=== PATIENT | female | born 1975 | race Caucasian/White ===

== ENCOUNTER 2025-01-28 20:38 | Inpatient (IN) | payer BC, SELFPAY ==
[2025-01-28 15:13] VITALS: BP 142/98
[2025-01-28 15:46] LABS: Hematocrit 37.9 % (37.0-47.0); Hemoglobin 13.3 g/dL (12.0-16.0); Mean Corp Hgb Conc. 35.1 g/dL (33.0-37.0); Mean Corpuscular Volume 99.0 fL (81.0-99.0); Nucleated Red Blood Cells % 0 %; Platelet Count 164 10^3/uL (130-400); Red Cell Dist. Width 11.8 % (11.5-14.5)
[2025-01-28 16:00] LABS: Troponin I 0.020 ng/ml
[2025-01-28 16:05] LABS: ALT (SGPT) 96 U/L (0-35); AST (SGOT) 154 U/L (14-36); Albumin 4.0 g/dl (3.5-5.0); Alkaline Phosphatase 98 U/L (38-126); Blood Urea Nitrogen 7 mg/dl (7-17); Calcium 9.4 mg/dl (8.4-10.2); Carbon Dioxide 22 mmol/L (22-30); Chloride 103 mmol/L (98-107); Glucose 94 mg/dl (70-99); Potassium 4.4 mmol/L (3.5-5.1); Sodium 134 mmol/L (135-145); Total Protein 6.6 g/dl (6.3-8.2); eGFR > 60.00
[2025-01-28 17:37] VITALS: BMI 28.7
[2025-01-28 18:00] VITALS: BP 138/106
[2025-01-28 18:16] LABS: HCG, Serum Qualitative Screen Negative
[2025-01-28 18:36] LABS: APTT 25.9 Sec (23.4-35.0)
[2025-01-28] MEDS: HEPARIN 25000 UNITS/250 ML IV (18:36)
[2025-01-28] MEDS: HEPARIN 6400 UNITS IV (18:38)
[2025-01-28] MEDS: NSS 500 IV (18:42)
--- NOTE | 2025-01-28 19:40 | ED.GENMED ---
History of Present Illness
General
Chief Complaint: Swelling
Time Seen by Provider: 01/28/25 17:24
History of Present Illness
History of Present Illness:
49-year-old female complaining of a few days of left leg pain. Also noting shortness of breath and tachycardia at home. No travel history no history of clotting. No other medical history
Phy Exam
Physical Exam
Physical Exam:
GENERAL: Alert and oriented in no apparent distress
EYE: Orbits normal.
NECK: Supple, no significant adenopathy.
ENT: Pharynx without erythema
CARDIAC: Regular rate and rhythm without any obvious murmurs.
LUNGS: Clear breath sounds,normal
ABDOMEN: Soft, without focal tenderness or distention
NEUROLOGICAL: Alert and oriented , grossly non-focal
SKIN: Warm and dry, no rash or lesion, no discoloration, skin intact.
MUSCULOSKELETAL: Mild swelling and tenderness to left lower extremity and calf. Good distal pulses and color
PSYCH: Normal and appropriate interaction.
Scores
Heart Failure Risk
Heart Failure Risk Score: Not Applicable
Course
Orders/Labs/Results
Orders:
Orders
01/28/25 15:07
EKG [Electrocardiogram (*1)] Urgent
Reason for Study: Shortness of Breath
EKG- Treatment ONCE
01/28/25 15:19
Venous Doppler Lwr Ext Left [US Periph Venous LOWER Ext LT] Urgent
Comment:
Reason For Exam: L calf pain, SOB
01/28/25 15:26
Complete Blood Count/With Diff Urgent
Comprehensive Metabolic Panel Urgent
HCG, Serum Qualitative Screen Urgent
Comment: ADD ON
NT-proBNP Urgent
Troponin I Urgent
01/28/25 17:25
CT Chest PE Study Urgent
Comment:
Reason For Exam: Short of breath/DVT
IV Insert/Care/Rem.- Treatment PRN
0.9% Sodium Chloride 500 ml [Nss] 500 ml IV BOLUS
01/28/25 17:34
Add On- LAB Urgent
Tests Added?: qual bhcg
01/28/25 17:38
Heparin 6,400 units IV NOW STA
Nursing to Place Non Medication Order As Directed
Physician Order: PTT 6 hours after initial start of Heparin infusion
Above order entered?: Yes
01/28/25 17:45
Heparin 54867 Units/250 ml 25,000 units in 250 ml IV PER PROTOCOL
Weight to be used for heparin protocol in kilograms (kg):: 80.6
Protocol:: DVT/PE
PTT Goal Range to be used:: PTT 73 to 111 seconds
Order type:: Initial
INITIAL Infusion Dose (UNITS/KG/hr) & then follow protocol:: 18 units/kg/hr
Infusion Dose in UNITS/hr & then follow protocol (UNITS/hr):: 1,500
INFUSION RATE in mL/hr & then follow protocol (mL/hr):: 15
For DVT/PE algorithm, re-bolus for low PTT?: Yes
PTT less than or equal to 64 seconds:: Re-bolus 80 units/kg (max 10,000units). Increase by 300 units/hr
(+ 3mL/hr)
PTT 64.1 to 72.9 seconds:: Re-bolus 40 units/kg (max 5,000 units). Increase by 200 units/hr
(+ 2mL/hr)
PTT 73 to 111 seconds:: Target Range. No change in rate.
PTT 111.1 to 130.9 seconds:: Decrease rate by 200 units/hr (- 2 mL/hr)
PTT 131 to 199.9 seconds:: HOLD for 1 hr. Then decrease by 200 units/hr (- 2mL/hr)
PTT greater than or equal to 200 seconds:: HOLD for 2 hrs & Notify Provider. Then decrease by 300 units/hr
(- 3mL/hr)
Lab follow-up:: Each change, PTT q6h until 2 consecutive are therapeutic. Then
PTT daily.
12/12/25 18:18
PTT Urgent
Comment: Obtain baseline before beginning heparin infusion if not already collected
01/28/25 18:26
Heparin 3,200 units IV PRN PRN
Heparin 6,400 units IV PRN PRN
01/29/25 00:36
Protime/PTT Routine
Is the patient on Heparin?: Yes
Abnormal Lab Results
01/28/25
15:26
RBC 3.83 L 10^6/uL
(4.20-5.40)
MCH 34.7 H pg
(27.0-31.0)
Abs Immat Gran (auto) 0.1 H 10^3/uL
(0-0.05)
Absolute Monos (auto) 1.1 H 10^3/uL
(0.1-0.6)
Immature Gran % 0.6 H %
(0-0.5)
Lymphocytes % 20.2 L %
(20.5-51.1)
Monocytes % 11.5 H %
(1.7-9.3)
Sodium 134 L mmol/L
(135-145)
Total Bilirubin 1.4 H mg/dl
(0.2-1.3)
AST 154 H U/L
(14-36)
ALT 96 H U/L
(0-35)
01/28/25 15:26
01/28/25 15:26
Vital Signs
Initial and Last Documented VS:
Initial Vital Signs
Temp Pulse Resp BP Pulse Ox
98.3 F 96 20 142/98 98
01/28/25 15:13 01/28/25 15:13 01/28/25 15:13 01/28/25 15:13 01/28/25 15:13
Last Documented Vital Signs
Temp Pulse Resp BP Pulse Ox
98.3 F 76 25 138/106 98
12/12/25 15:13 01/28/25 19:00 01/28/25 19:00 01/28/25 18:00 01/28/25 19:00
MDM/Problems Addressed
Differential Diagnosis Includes:
Patient with a positive ultrasound for extensive lower extremity DVT. Also describing clear-cut high risk for pulmonary emboli with shortness of breath and tachycardia. No obvious explanation or history. No clotting disorders. No travel history.
No risk factors. Patient clinically appears stable and nontoxic. Started heparin presumptively based on a very high suspicion. CT scan confirms bilateral pulmonary emboli. No RV strain. Patient will be heparinized and admitted
*Radiology
Radiology exam reviewed: radiology read reviewed (Bilateral upper lobe and lower lobe pulmonary emboli. No RV strain)
*Pulse Oximetry
SaO2: 98
Nasal Cannula flow liters per minute: 99
Oxygen Mode of Delivery: Room air
Patient hypoxic: no (98)
*EKG
Interpreted by ED Provider?: Yes
Interpretation: abnormal
Comparison EKG: no comparison EKG present
Heart Rate: 81
Rate: normal
Rhythm: sinus
[place]: normal axis
Interval: normal interval
QRS Pattern: low voltage
Ischemia: non-specific ST changes
*Billet Heater Interpretation
Rate: normal
Interpretation: normal
Heart Rate: 70
*Critical Care Note
Total Time (30-74mins, 75-104mins- exclusive of procedures): 40
ED Attending Note
-
Portions of this chart may have been created with voice recognition software.� Occasional wrong word or��sound alike� substitutions may have occurred due to the inherent limitations of voice recognition software.
Discharge Plan
Departure
Patient Disposition: Admit
Date of Disposition: 01/28/25
Time of Disposition: 19:11
Presentation/result/management discussed w/ accepting MD/DO: Hospitalist
Discharge Problem:
Bilateral pulmonary emboli, Left lower extremity DVT
Prescriptions:
No Action
acetaminophen [Tylenol] 325 mg Tablet
650 mg PO Q6HPRN PRN (Reason: MILD PAIN)
Referrals:
NONE,* [Family Provider, Internal Medicine]
Interventions
Interventions:
*Risk Screen - Suicide Last Done: 01/28/25 15:13
*General Assessment Last Done: 01/28/25 15:13
*Neglect/Abuse Screening Last Done: 01/28/25 15:13
*ED COVID-19 Vaccine History Last Done: 01/28/25 15:13
*ED Influenza Vaccine History Last Done: 01/28/25 15:13
[facility] Fall Risk Assessment Tool Last Done: 01/28/25 17:41
ED- Cardiac Assessment Last Done: 01/28/25 17:40
ED- Pulmonary Assessment Last Done: 01/28/25 17:40
ED-Skin Assessment Last Done: 01/28/25 17:39
Discharge Date and Time
Print Language: YAKUT
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
[2025-01-28] MEDS: TYLENOL 650 MG PO (20:30)
[2025-01-28 22:31] VITALS: BP 132/86
--- NOTE | 2025-01-28 23:00 | TRANSFER ---
Received pt from ED via stretcher. Pt AAOx3.VSS. Heparin gtt running per protocol verified with ED RN. Due to (+) PE, pt instructed to roll from stretcher to bed with staff assistance to minimize risk. Pt oriented to room, unit and use of call bowser.
Plan of care reviewed and ongoing.
[2025-01-28] MEDS: ROXICODONE 5 MG PO (23:16)
[2025-01-28 23:19] LABS: Troponin I 0.017 ng/ml
[2025-01-29] VITALS (11 sets, daily range): BP systolic 103–131; BP diastolic 68–89; BMI 28.6
[2025-01-29 01:08] LABS: INR 1.27; PT 16.0 Sec (11.4-14.6)
[2025-01-29 01:28] LABS: APTT 152.8 Sec (23.4-35.0)
[2025-01-29] MEDS: ROXICODONE 5 MG PO ×3 (03:35→18:00)
[2025-01-29 04:52] LABS: Blood Urea Nitrogen 9 mg/dl (7-17); Calcium 8.7 mg/dl (8.4-10.2); Carbon Dioxide 23 mmol/L (22-30); Chloride 104 mmol/L (98-107); Estimated Creatinine Clearance 123 ml/min; Glucose 120 mg/dl (70-99); Potassium 3.6 mmol/L (3.5-5.1); Sodium 133 mmol/L (135-145); eGFR > 60.00
--- NOTE | 2025-01-29 05:28 | PTCARENOTE ---
Pt's oxygen saturation noted to decreased to 89% while sleeping. Pt without sign of acute respiratory distress. Oxygen applied at 1L/min for comfort. INVESTMENT REPRESENTATIVE Kristie Hi notified; oxygen therapy ordered. Pt's oxygen saturation improved. Plan of care
ongoing. Will continue to monitor.
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
--- NOTE | 2025-01-29 08:30 | PTCARENOTE ---
Patient received from rd scientist. Patient resting comfortably in bed. AAO, VSS. No events noted overnight. Complaints of pain in the left leg, warm to the touch and swollen. Heparin gtt @ 1300 units/hr, next PTT around 0830. No testing
scheduled at this time. Call bowser in reach.
[2025-01-29] MEDS: DILAUDID 0.5 MG IV ×3 (08:40→21:55)
--- NOTE | 2025-01-29 09:34 | W.PN.HOSP.TC ---
Today's Communication/Plan
-
.
Assessment / Plan
Assessment / Plan
Physical Exam
General:no acute distress
HEENT: Moist mucous membranes and PERRLA
Respiratory: Clear; mild rales heard at bases, no wheezes, limited overall
Cardiac: S1/S2 and Regular Rhythm; No Murmur
GI: Soft, Non Tender, Non Distended and Normal Bowel Sounds
Musculoskeletal: No Clubbing, No Cyanosis and Other (LLE 1-2+ edema. No RLE edema or calf tenderness.)
Neuro: AO x 3, she followed commands.
Psych: calm.
Patient is a 49y F with no significant PMH who presents to ED for evaluation of palpitations, SOB and LLE swelling.
LLE DVT/ Extensive Bilateral Pulmonary Emboli
Sao2 dropped to 90 % while asleep but no hypoxia reported.
She reports pleuritic chest pain with discolored left lower extremity which is consistent with DVT.
Continue heparin for 48-hour
Negative troponin. EKG normal sinus rhythm.
Continue pain control with Tylenol, oxycodone
Appreciate hematology and pulmonary input
# Mild elevation liver enzymes. Recheck. No abdominal pain. No nausea.
# Hyponatremia, mild. No confusion.
Code Status: Full
Total time spent to see the patient, examined the patient, reviewed data and lab result, discuss treatment plan with patient, nursing staff around 55 minutes
Anticipated Discharge: > 48 hours
Subjective/Interval History
-
Date of Service: January 29, 2025
She has pleuritic chest pain, lower left leg pain. Responding to pain medicine.
Objective Data
-
Labs:
Laboratory Results
01/29/25 01/29/25 01/29/25
00:44 03:40 09:10
PT 16.0 H
INR 1.27
APTT 152.8 H* Pending
Sodium 133 L
Potassium 3.6
Chloride 104
Carbon Dioxide 23
BUN 9
Creatinine 0.5 L
Glucose 120 H
Calcium 8.7
Vital Signs:
Vital Signs
Temp Pulse Resp BP Pulse Ox
98.4 F 72 20 117/78 97
01/29/25 07:16 01/29/25 06:00 01/29/25 06:00 01/29/25 06:00 01/29/25 06:00
I&O
01/28/25 01/29/25 01/30/25
06:59 06:59 06:59
Intake Total 480 / 480
Balance 480 / 480
[2025-01-29 09:36] LABS: APTT 96.0 Sec (23.4-35.0)
[2025-01-29] MEDS: HEPARIN 25000 UNITS/250 ML IV (11:49)
--- NOTE | 2025-01-29 12:22 | CM ---
CM reviewed chart and attempted to see patient for initial assessment, however patient was receiving care with jaye shen. Per chart, patient lives at home with and child(yaneth). Patient is listed as self-pay with no PCP. CM will follow up.
[2025-01-29 15:46] LABS: APTT 73.8 Sec (23.4-35.0)
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
[2025-01-29] MEDS: MELATONIN 5 MG PO (21:55)
[2025-01-30] VITALS (12 sets, daily range): BP systolic 98–124; BP diastolic 57–86; PULSE 75; O2SAT 98
--- NOTE | 2025-01-30 01:28 | PTCARENOTE ---
Pt received at beginning of shift resting in bed. AAOX3. Heparin gtt at 1300units/hr. PTT therapeutic x 2 next PTT in am. Pt without c/o CP. Admits to left leg pain. Medicated with Dilaudid at 2200 as ordered with good relief. Placed on 2 L NC
overnight pox 88% when asleep. Rest of assessment as documented. Call bowser remains within reach. Will continue to monitor.
[2025-01-30 03:53] LABS: Hematocrit 34.6 % (37.0-47.0); Hemoglobin 12.0 g/dL (12.0-16.0); Mean Corp Hgb Conc. 34.7 g/dL (33.0-37.0); Mean Corpuscular Volume 100.3 fL (81.0-99.0); Platelet Count 152 10^3/uL (130-400); Red Cell Dist. Width 11.9 % (11.5-14.5)
[2025-01-30 04:05] LABS: APTT 81.3 Sec (23.4-35.0)
[2025-01-30] MEDS: ROXICODONE 5 MG PO ×4 (04:05→19:44)
[2025-01-30] MEDS: DILAUDID 0.5 MG IV ×4 (08:16→23:32)
[2025-01-30] MEDS: HEPARIN 25000 UNITS/250 ML IV (08:17)
--- NOTE | 2025-01-30 10:46 | W.PN.HOSP.TC ---
Addendum entered and electronically signed by Roxann Ayers MD 01/30/25 15:19:
Addendum
Extensive pulmonary embolism, will order echocardiogram.
- Left lower extremity mild swelling, good peripheral pulses. Discussed with vascular surgery. Reviewed ultrasound result, no thrombosis seen in common femoral vein, vascular will see the patient for further recommendations, appreciate help.
End
Original Note:
Today's Communication/Plan
-
c/w IV heparin gtt
c/w pain control
Ok to ambulate
Assessment / Plan
Assessment / Plan
Physical Exam
General:no acute distress
HEENT: Moist mucous membranes and PERRLA
Respiratory: Clear; mild rales heard at bases, no wheezes, limited overall
Cardiac: S1/S2 and Regular Rhythm; No Murmur
GI: Soft, Non Tender, Non Distended and Normal Bowel Sounds
Musculoskeletal: No Clubbing, No Cyanosis and Other (LLE 1-2+ edema. No RLE edema or calf tenderness.)
Neuro: AO x 3, she followed commands.
Psych: calm.
Patient is a 49y F with no significant PMH who presents to ED for evaluation of palpitations, SOB and LLE swelling.
LLE DVT/ Extensive Bilateral Pulmonary Emboli
Sao2 dropped to 90 % while asleep but no hypoxia reported.
She reports pleuritic chest pain with discolored left lower extremity which is consistent with DVT.
Continue heparin for 48-72-hour
Negative troponin. EKG normal sinus rhythm.
Continue pain control with Tylenol, oxycodone
per oncology: Provoked posttraumatic left popliteal DVT with bilateral pulmonary embolism. At least 6 month sof AC then re-evaluate
Appreciate hematology and pulmonary input
# Mild elevation liver enzymes. Recheck. No abdominal pain. No nausea.
# Hyponatremia, mild. No confusion.
Code Status: Full
Total time spent to see the patient, examined the patient, reviewed data and lab result, discuss treatment plan with patient, nursing staff around 55 minutes
Anticipated Discharge: 24 - 48 hours
Subjective/Interval History
-
Date of Service: January 30, 2025
Still left leg pain at times
Objective Data
-
Labs:
Laboratory Results
01/30/25
03:39
WBC 6.1
Hgb 12.0
Hct 34.6 L
Plt Count 152
APTT 81.3 H
Vital Signs:
Vital Signs
Temp Pulse Resp BP Pulse Ox
98.2 F 84 19 118/86 93
01/30/25 08:13 01/30/25 10:00 01/30/25 10:00 01/30/25 08:21 01/30/25 10:00
I&O
01/29/25 01/30/25 01/31/25
06:59 06:59 06:59
Intake Total 480 / 480 1476 / 1476
Balance 480 / 480 1476 / 1476
--- NOTE | 2025-01-30 11:19 | CM ---
CM met with pt bedside
Pt resides with her spouse and 3 children ( 18, 15, 12 y/o) in a 2SH with 1 DANIE through front, full flight to 2nd floor
Pt is independent with her ADLs
Denies use of DMEs and financial insecurities
PCP- none
Rx- [facility]
Pt listed as self-pay
Pt notes she is insured through [employer] with Rx
Does not have card with her- requested card or copy to be provided
Pt currently admitted in the IMU for B/L pulmonary emboli and LLE DVT
PT eval pending
CM will follow for dc planning
Discharge Disposition- anticipate home, likely no needs
--- NOTE | 2025-01-30 16:00 | PTCARENOTE ---
Patient able to walk to and back from bathroom throughout the day. Pt is limping and not trying to put pressure on left leg due to pain. Patient worked with PT and sat out in chair. Pt does have significant pain in her LLE and has gotten pain
medication about every 2 hours, see MAR. Pt's SPO2 stable while awake but does drop to 88-89% while asleep and 2L NC applied at that time. Assessment, care and VS as charted.
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
[2025-01-30] MEDS: DILAUDID 0.25 MG IV (21:46)
--- NOTE | 2025-01-30 22:25 | PTCARENOTE ---
Assumed care of patient from anival RN. Pt aaox3. NSR on the monitor. SpO2 96% on 1L NC. Pt c/o 9/10 tight and sharp pain in her left calf. Pt not due for any pain medications at that time and SIGN [employer]ARD [employer]OR made aware. Rx received for IV Dilaudid (see
APR). Pt currently resting in bed with call bowser in reach.
[2025-01-31] VITALS (12 sets, daily range): BP systolic 94–123; BP diastolic 62–83
[2025-01-31] MEDS: ROXICODONE 5 MG PO ×4 (02:09→21:07)
[2025-01-31] MEDS: HEPARIN 25000 UNITS/250 ML IV (05:46)
[2025-01-31] MEDS: DILAUDID 0.5 MG IV ×5 (05:47→23:55)
[2025-01-31 06:24] LABS: APTT 59.2 Sec (23.4-35.0)
[2025-01-31 06:36] LABS: Blood Urea Nitrogen 5 mg/dl (7-17); Calcium 8.4 mg/dl (8.4-10.2); Carbon Dioxide 26 mmol/L (22-30); Chloride 102 mmol/L (98-107); Estimated Creatinine Clearance 123 ml/min; Glucose 102 mg/dl (70-99); Potassium 3.8 mmol/L (3.5-5.1); Sodium 132 mmol/L (135-145); eGFR > 60.00
[2025-01-31] MEDS: HEPARIN 6400 UNITS IV (07:07)
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
[2025-01-31 08:18] LABS: ALT (SGPT) 47 U/L (0-35); AST (SGOT) 51 U/L (14-36); Alkaline Phosphatase 84 U/L (38-126); Magnesium 2.0 mg/dl (1.6-2.3)
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
--- NOTE | 2025-01-31 09:11 | PTCARENOTE ---
pt aaox3. states pain in left lower leg pain med given as ordered. pt able to walk to bathroom but having pain in leg. heparin gtt running as ordered. pt on room air breath sounds clear diminished at base 95%.
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
[2025-01-31 13:14] LABS: Hematocrit 34.3 % (37.0-47.0); Hemoglobin 12.1 g/dL (12.0-16.0); Mean Corp Hgb Conc. 35.3 g/dL (33.0-37.0); Mean Corpuscular Volume 99.1 fL (81.0-99.0); Platelet Count 177 10^3/uL (130-400); Red Cell Dist. Width 12.0 % (11.5-14.5)
[2025-01-31 13:28] LABS: APTT 160.2 Sec (23.4-35.0)
--- NOTE | 2025-01-31 17:22 | CM ---
F/U: MARIAH Agapito was asked to grullon Eliquis starter pack (75 pills) then regular monthly pack (60 pills). [place]on for starter is about $400 and regular monthly is $320. MARIAH was able to use $10 copay card for the starter, unable to use 30 day copay card
for 60 pills, but [facility] stated to have patient obtain one from cardiology office and try when it is time to fill for the 60 pills. Patient/ family aware as well as hospitalist. PLAN: Anticipate Home No Needs.
[2025-01-31] MEDS: ELIQUIS 10 MG PO (19:54)
[2025-01-31] MEDS: MELATONIN 5 MG PO (21:07)
--- NOTE | 2025-01-31 23:32 | PTCARENOTE ---
assumed care of patient. pt is AAOx3, VSS. able to make needs known. heparin gtt turned off at 1999 per order. first dose of eliquis given per APR. pt with reports of left leg pain. medicated per APR. pt able to walk into bathroom x1 assist, pt
putting minimal weight on left leg d/t pain. pt is 95% RA. care ongoing.
[2025-02-01 05:21] VITALS: BP 121/69
[2025-02-01] MEDS: DILAUDID 0.5 MG IV (05:24)
[2025-02-01 05:58] LABS: Hematocrit 34.2 % (37.0-47.0); Hemoglobin 12.1 g/dL (12.0-16.0); Mean Corp Hgb Conc. 35.4 g/dL (33.0-37.0); Mean Corpuscular Volume 101.5 fL (81.0-99.0); Platelet Count 194 10^3/uL (130-400); Red Cell Dist. Width 11.9 % (11.5-14.5)
[2025-02-01 08:09] VITALS: BP 122/77
[2025-02-01] MEDS: ROXICODONE 5 MG PO (08:16)
[2025-02-01] MEDS: ELIQUIS 10 MG PO (08:16)
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
--- NOTE | 2025-02-01 08:31 | PTCARENOTE ---
pt aaox3. states 8/10 pain in left leg. pain med given. reviewed pain management goals at home. left le +1 edema. pulses strong.
--- NOTE | 2025-02-01 10:38 | CM ---
F/U: Patient was recommended Home PT, but does not have a PCP so will get a script for Outpatient. PLAN: Home No Needs.
--- NOTE | 2025-02-01 11:02 | VNURNOTE ---
Chart reviewed. Home Health Liaison met with patient and spouse at bedside to discuss [facility] nurse/therapy, visits. Patient confirms she does not have a PCP. Explained that [facility] would not be able to accept until PCP established. Patient
verbalized understanding and stated she would agree to go to outpt PT. Provided pt with [facility]ure. CHRISTOPHER Vilal and MARIAH Altman updated.
Non-admit by [facility].
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
[2025-02-03 02:14] LABS: Beta-2-Glycoprotein I Ab. IgG <10 SGU (<=20); Beta-2-Glycoprotein I Ab. IgM <10 SMU (<=20)
== END 2025-02-01 10:31 | disposition home or self-care (01) | DRG 176 ==
LOC: IMU 20:38
PROVIDERS: Internal Medicine; Nurse Practitioner Acute Care; ADMITTING PHYSICIAN Hospitalist; ATTENDING PHYSICIAN Student in an Organized Health Care Education/Training Program; CONSULT PHYSICIAN Internal Medicine Critical Care Medicine; CONSULT PHYSICIAN Surgery Vascular Surgery; EMERGENCY PHYSICIAN Emergency Medicine; OTHER PHYSICIAN Internal Medicine Hematology & Oncology
DX: I26.92 Saddle embolus of pulmonary artery without acute cor pulmonale (principal); I82.432 Acute embolism and thrombosis of left popliteal vein; E87.1 Hypo-osmolality and hyponatremia; K21.9 Gastro-esophageal reflux disease without esophagitis; Z80.3 Family history of malignant neoplasm of breast
CPT/HCPCS: 71275; 80048; 80053; 82247; 83735; 83880; 84075; 84443; 84450; 84460; 84484; 84703; 85025; 85027; 85610; 85613; 85730; 86146; 86147; 93005; 93306; 93971; 96365; 96366; 97162; 99285; Q9967